=== PATIENT | male | born 1970 | race Caucasian/White ===

== ENCOUNTER → 2019-01-18 | Outpatient (CLI) | payer OTHER ==
[2019-01-18 16:06] LABS: Stool Occult Bld Immuno 1 Negative (NEGATIVE)
== END | disposition home or self-care (01) ==
LOC: LAB EV 08:39 → LAB SHORT 08:39
PROVIDERS: Family Medicine
DX: D64.9 Anemia, unspecified (principal)
CPT/HCPCS: 82274

== ENCOUNTER 2022-03-23 07:43 | Day surgery (SDC) | payer OTHER ==
[~2022-03-23] VITALS: Ht 177.8 cm; Wt 83.9 kg
[~2022-03-23 07:43] MED LIST: AMLO10 PO; LISI20 PO
--- NOTE | 2022-03-23 14:51 | NUR ---
Discharge instructions reviewed with patient. Patient verbalizes understanding. Copy given to patient to take home. DERMABOND GLUE TO INCISION C/D/I, PT TOLERATED PUDDING AND SWAPNIL MIST WELL. NO C/O, NO PAIN AT THIS TIME. Discharged via wheelchair to private car for ride home.
== END 2022-03-23 14:45 | disposition home or self-care (01) ==
LOC: ORSCMMR 07:43 → ORD 09:15 → ORSCMMR 14:45
PROVIDERS: Surgery
PROC: 0JB70ZX Excision of Back Subcutaneous Tissue and Fascia, Open Approach, Diagnostic (ICD-10-PCS; principal; 2022-03-23 11:30)
DX: D17.1 Benign lipomatous neoplasm of skin and subcutaneous tissue of trunk (principal); I10 Essential (primary) hypertension; Z79.899 Other long term (current) drug therapy
CPT/HCPCS: 88304; J0690; J1100; J1885; J2250; J2405; J2704; J2795; J3010; J7120

== ENCOUNTER → 2023-03-08 | Outpatient (CLI) | payer OTHER ==
[2023-03-08 15:05] LABS: Stool Occult Bld Immuno 1 Negative (NEGATIVE)
== END | disposition home or self-care (01) ==
LOC: LAB SHORT 08:55 → LAB 08:55
PROVIDERS: Family Medicine
DX: Z12.11 Encounter for screening for malignant neoplasm of colon (principal)
CPT/HCPCS: G0328